=== PATIENT | female | born 1995 | race Two or more races ===

== ENCOUNTER 2024-09-14 22:41 | Emergency (ER) | payer OTHER, SELFPAY ==
[2024-09-14 23:47] VITALS: PULSE 75; TEMP 36.7; O2SAT 94; BMI 34.0
--- NOTE | 2024-09-15 00:24 | ED_ITS ---
HPI HPI - General Adult General Chief complaint: Extremity Injury, Upper Stated complaint: FINGER NAIL RIPPED OFF Time Seen by Provider: 09/14/24 23:50 Source: patient Mode of arrival: walk-in Limitations: no limitations History of Present Illness HPI narrative: 28-year-old female to the emergency department chief complaint of injury to her right ring finger. She reports that her dog caught it and pulled her fake fingernail up. She believes it lifted her fingernail off. Related Data Allergies Allergy/AdvReac Type Severity Reaction Status Date / Time No Known Drug Allergies Allergy Verified 09/14/24 23:53 Opioid HPI Opioid Management Most Recent Opioid Data: No Data to Display Review of Systems ROS Status of ROS 10 or more systems reviewed and unremark able except as noted in history and below PFSH PFSH Social History Little interest or pleasure in doing things: not at all Feeling down, depressed, or hopeless: not at all Exam Narrative Exam Narrative: Right hand: Very large acrylic fingernails. Radial pulse intact. Sensation intact over the fingers. Flexor and venetian blind mechanic tendons are intact at each digit in the middle finger. She has avulsion of the fingernail except at the cuticle. No nailbed laceration. Constitutional Vital Signs, click to edit/add: Last Vital Signs Temp 98.1 F 09/14/24 23:47 Pulse 75 09/14/24 23:47 Resp 09/14/24 23:47 Pulse Ox 94 L 09/14/24 23:47 O2 Del Method Room Air 09/14/24 23:47 Course Vital Signs Vital signs: Vital Signs Temperature 98.1 F 09/14/24 23:47 Pulse Rate 75 09/14/24 23:47 Respiratory Rate 16 09/14/24 23:47 Pulse Oximetry 94 L 09/14/24 23:47 Oxygen Delivery Method Room Air 09/14/24 23:47 Temperature 98.1 F 09/14/24 23:47 Pulse Rate 75 09/14/24 23:47 Respiratory Rate 16 09/14/24 23:47 Pulse Oximetry 94 L 09/14/24 23:47 Oxygen Delivery Method Room Air 09/14/24 23:47 Medical Decision Making MDM Narrative Medical decision making narrative: Partial fingernail avulsion. No nailbed laceration. We will splint her fake nail in place to keep the nail fold open. She is given hand surgery follow-up. Return precautions were discussed. All questions were answered. The patient was discharged home Medical Records Medical records reviewed: Yes I reviewed the patient's medical records Discharge Plan Discharge Chief Complaint: Extremity Injury, Upper Clinical Impression: Avulsion of nail Patient Disposition: Home, Self-Care Time of Disposition Decision: 23:57 Condition: Good Mode of Transportation: Private Vehicle Print Language: [place] Additional Instructions: Call the office of your primary care doctor to arrange for follow-up within the above-stated timeframe. Your ED visit was focused on your acute issue and does not replace primary care. You should review your labs, imaging, and diagnoses from this ED visit with your primary care physician. There may be non-emergent/ incidental findings that need further evaluation. You should review your vital signs including blood pressure with your PCP. If you were prescribed medications you should discuss possible side-effects and drug interactions with your pharmacist. Call 911 or go to the nearest Emergency Department if you develop any new or worsening symptoms. Wear splint for 1 week to allow the nail to grow out. The old nail will likely fall off. Referrals: AMBROCIO NEGRON [Physician] - 1 week (Follow-up with hand surgery for repeat evaluation) Physician,Non-Staff, [Primary Care Provider] - 1 week Discharge Date/Time: 09/15/24 00:10
== END 2024-09-15 00:10 | disposition home or self-care (01) ==
PROVIDERS: Emergency Provider Student in an Organized Health Care Education/Training Program
DX: S61.304A Unspecified open wound of right ring finger with damage to nail, initial encounter (principal); X58.XXXA Exposure to other specified factors, initial encounter
CPT/HCPCS: 29130; 99283